=== PATIENT | female | born 1995 | race Two or more races ===

== ENCOUNTER → 2017-12-11 | Emergency (ER) | payer OTHER ==
[~2017-12-11] VITALS: Ht 157.5 cm; Wt 54.4 kg
[~2017-12-11] MED LIST: KETO10TA2 PO; LEVAQUIN750 MG PO; URIN D.S. TABL1 EACH PO
== END | disposition home or self-care (01) ==
LOC: ER 16:00
DX: N39.0 Urinary tract infection, site not specified (principal)

== ENCOUNTER 2020-12-14 06:20 | Emergency (ER) | payer OTHER ==
[~2020-12-14] VITALS: Ht 157.5 cm; Wt 52.2 kg
== END 2020-12-14 13:17 | disposition home or self-care (01) ==
LOC: ER 06:20
DX: O20.0 Threatened abortion (principal)

== ENCOUNTER 2020-12-16 12:40 | Outpatient (CLI) | payer OTHER | END 2020-12-16 12:43 | disposition home or self-care (01) | LOC: LAB 12:40 | PROVIDERS: ATTEND General Practice | DX: O20.0 Threatened abortion (principal) ==